=== PATIENT | female | born 1990 | race African-American/Black ===

== ENCOUNTER 2020-03-29 11:19 | Emergency (ER) | payer MEDICAID ==
[~2020-03-29] VITALS: Ht 160 cm; Wt 93.0 kg
[2020-03-29 11:58] VITALS: BP 137/74
[2020-03-29] MEDS ORDERED: ACETAMINOPHEN 325MG TABLET PO ONE (12:00)
== END 2020-03-29 11:59 | disposition home or self-care (01) ==
LOC: ER 11:19
DX: K02.9 Dental caries, unspecified (principal)
CPT/HCPCS: 99282; 99283